=== PATIENT | male | born 1940 | race Caucasian/White ===

== ENCOUNTER → 2021-05-01 | Day surgery (SDC) | payer MEDICARE ==
[~2021-05-01] MED LIST: ASPIRIN CHEWABL81 MG PO; HYDROCODON-ACE1 EAC4 PO; NEURONTIN600 MG PO; NITROSTAT0.4 MG SL; NORVASC5 MG PO; OMEGA 3 FISH O1 EACH PO; PROSCAR 5 MG TAB5 MG PO; SLOW RELEASE I143 MG PO; VITAMIN B-121000 MC1 PO; VITAMIN D350 MC3 PO
== END | disposition home or self-care (01) ==
LOC: OR 06:22
DX: R91.8 Other nonspecific abnormal finding of lung field (principal); R94.2 Abnormal results of pulmonary function studies; R04.2 Hemoptysis; R05.9 Cough, unspecified; R06.02 Shortness of breath; E27.8 Other specified disorders of adrenal gland; I10 Essential (primary) hypertension; K21.9 Gastro-esophageal reflux disease without esophagitis; Z87.891 Personal history of nicotine dependence; Z72.89 Other problems related to lifestyle; Z20.822 Contact with and (suspected) exposure to COVID-19; Z79.82 Long term (current) use of aspirin; Z79.899 Other long term (current) drug therapy
CPT/HCPCS: 71045; J2704; J3010; J7120

== ENCOUNTER → 2021-05-21 | Outpatient (CLI) | payer MEDICARE ==
[2021-05-21 08:42] LABS: HEMOGLOBIN 15.4 gm/dl (14.0-17.5); RED BLOOD COUNT 5.22 M/UL (4.20-5.50); WHITE BLOOD COUNT 8.2 K/UL (4.5-11.0)
== END ==
LOC: OR 07:54 → CT 05-28 08:00
PROVIDERS: Internal Medicine Pulmonary Disease
DX: J84.10 Pulmonary fibrosis, unspecified (principal); J98.4 Other disorders of lung; Z79.82 Long term (current) use of aspirin; Z20.822 Contact with and (suspected) exposure to COVID-19
CPT/HCPCS: 71045; 85027; 85610; 85730; U0002

== ENCOUNTER → 2021-07-03 | Day surgery (SDC) | payer MEDICARE ==
[~2021-07-03] MED LIST changes: +FLOMAX 0.4 MG0.4 MG PO; +HYDROCODON-ACE1 EAC6 PO; +PROSCAR5 MG PO; +TRIAMCINOLONE CREAM TOP
== END | disposition home or self-care (01) ==
LOC: OR 06:09
PROVIDERS: Surgery
PROC: 0DJ08ZZ Inspection of Upper Intestinal Tract, Via Natural or Artificial Opening Endoscopic (ICD-10-PCS; principal; 2021-07-03 09:00)
PROC: 02HV33Z Insertion of Infusion Device into Superior Vena Cava, Percutaneous Approach (ICD-10-PCS; 2021-07-03 09:00)
DX: C34.90 Malignant neoplasm of unspecified part of unspecified bronchus or lung (principal); C79.51 Secondary malignant neoplasm of bone; C80.1 Malignant (primary) neoplasm, unspecified; K44.9 Diaphragmatic hernia without obstruction or gangrene; K21.9 Gastro-esophageal reflux disease without esophagitis; J45.909 Unspecified asthma, uncomplicated; I10 Essential (primary) hypertension; M19.90 Unspecified osteoarthritis, unspecified site; C44.92 Squamous cell carcinoma of skin, unspecified; Z20.822 Contact with and (suspected) exposure to COVID-19; Z79.899 Other long term (current) drug therapy; Z87.891 Personal history of nicotine dependence
CPT/HCPCS: 71045; 77001; C1769; C1788; J0690; J1100; J1642; J2001; J2405; J2704; J3010; J7040; J7120

== ENCOUNTER → 2021-07-09 | Outpatient (CLI) | payer MEDICARE | LOC: MRI 13:33 | DX: Z12.89 Encounter for screening for malignant neoplasm of other sites (principal); J32.0 Chronic maxillary sinusitis | CPT/HCPCS: 70553; A9577 ==

== ENCOUNTER → 2021-10-10 | Outpatient (CLI) | payer MEDICARE | LOC: CT 10:00 | DX: C80.1 Malignant (primary) neoplasm, unspecified (principal); R91.8 Other nonspecific abnormal finding of lung field | CPT/HCPCS: 71260; Q9967 ==